=== PATIENT | male | born 1960 | race African-American/Black ===

== ENCOUNTER → 2018-08-19 | Outpatient (CLI) | payer OTHER ==
[2018-08-19 10:30] LABS: ABSOLUTE EOSINOPHILS # (AUTO) 0.5 10^3/uL (0.0-0.6); ABSOLUTE LYMPHOCYTES (AUTO) 1.3 10^3/uL (0.5-4.7); ABSOLUTE MONOCYTES (AUTO) 0.5 10^3/uL (0.1-1.4); ABSOLUTE NEUT (AUTO) 4.9 10^3/uL (1.7-8.2); BASOPHILS % (AUTO) 0.3 % (0-2); HEMATOCRIT 42.4 % (37.9-51.0); HEMOGLOBIN 14.6 g/dL (13.5-17.0); LYMPHOCYTES % (AUTO) 17.6 % (13-45); MEAN CORPUSCULAR HGB CONC 34.4 g/dL (32.0-36.0); MEAN CORPUSCULAR VOLUME 96 fl (80-97); MONOCYTES % (AUTO) 6.5 % (3-13); PLATELET COUNT 188 10^3/uL (150-450); RED BLOOD COUNT 4.42 10^6/uL (4.35-5.55); SEGMENTED NEUTROPHILS % (AUTO) 68.6 % (42-78); TOTAL CELLS COUNTED % (AUTO) 100 %; WHITE BLOOD COUNT 7.1 10^3/uL (4.0-10.5)
[2018-08-19 10:50] LABS: ALANINE AMINOTRANSFERASE 27 U/L (21-72); ALKALINE PHOSPHATASE 63 U/L (38-126); ANION GAP 10 (5-19); ASPARTATE AMINO TRANSFERASE 28 U/L (17-59); BILIRUBIN,DIRECT 0.3 mg/dL (0.0-0.4); BILIRUBIN,TOTAL 1.1 mg/dL (0.2-1.3); BLOOD UREA NITROGEN 14 mg/dL (7-20); CALCIUM 9.3 mg/dL (8.4-10.2); CARBON DIOXIDE 28 mmol/L (22-30); CHLORIDE 103 mmol/L (98-107); GLUCOSE 120 mg/dL (75-110); POTASSIUM 4.8 mmol/L (3.6-5.0); SODIUM 141.3 mmol/L (137-145); TOTAL PROTEIN 7.2 g/dL (6.3-8.2)
== END ==
LOC: OD 09:21
PROVIDERS: ATTEND Internal Medicine Geriatric Medicine
DX: R10.9 Unspecified abdominal pain (principal)
CPT/HCPCS: 36415; 80053; 85025

== ENCOUNTER → 2018-08-23 | Outpatient (CLI) | payer OTHER ==
--- NOTE | 2018-08-23 13:05 | RADIOLOGY REPORT (SQ) ---
EXAM DESCRIPTION: CT ABD/PELVIS WITH IV ORAL COMPLETED DATE/TIME: 08/23/2018 10:38 am REASON FOR STUDY: ABD PAIN (R10.9) R10.9 UNSPECIFIED ABDOMINAL PAIN COMPARISON: None. TECHNIQUE: CT scan of the abdomen and pelvis performed with intravenous and oral contrast using rodrigo alyssa scanning technique with dynamic intravenous contrast injection. Images reviewed with lung, soft t issue, and bone windows. Reconstructed coronal and sagittal MPR images reviewed. Delayed images for e valuation of the urinary system also acquired. All images stored on PACS. All CT scanners at this facility use dose modulation, iterative reconstruction, and/or weight based d osing when appropriate to reduce radiation dose to as low as reasonably achievable (ALARA). [facility]: Dose Right [facility]: CareDose [facility]: Dose Right [facility]: Teradose 4D [facility]: [employer] CONTRAST TYPE AND DOSE: contrast/concentration: Isovue 350.00 mg/ml; Total Contrast Delivered: 86.0 ml; Total Saline Delivered: 69.0 ml RENAL FUNCTION: GFR > 60. RADIATION DOSE: CT Rad equipment meets quality standard of care and radiation dose reduction techniq ues were employed. CTDIvol: 6.0 - 6.7 mGy. DLP: 690 mGy-cm.. LIMITATIONS: None. FINDINGS: LOWER CHEST: 4 mm right middle lobe pulmonary nodule. 5 mm right lower lobe pulmonary nod ule. LIVER: Normal size. No masses. No dilated ducts. SPLEEN: Normal size. No focal lesions. PANCREAS: No masses. No significant calcifications. No adjacent inflammation or peripancreatic fluid collections. Pancreatic duct not dilated. GALLBLADDER: No identified stones by CT criteria. No inflammatory changes to suggest cholecystitis. ADRENAL GLANDS: No significant masses or asymmetry. RIGHT KIDNEY AND URETER: No solid masses. No significant calcification. No hydronephrosis or hydroure ter. LEFT KIDNEY AND URETER: 5 cm lower pole/ parapelvic cyst. No obstruction or solid mass. AORTA AND VESSELS: No aneurysm. No dissection. Renal arteries, SMA, celiac without stenosis. RETROPERITONEUM: No retroperitoneal adenopathy, hemorrhage or masses. BOWEL AND PERITONEAL CAVITY: Diverticulosis throughout the distal colon. Sigmoid colon looks thick-w alled, but this may be due to underdistention with contrast. Contrast has not yet reached this porti on of the bowel. Other loops of bowel look normal. Mild-moderate stool. No mechanical bowel obstru ction. No ascites or abnormal gas. APPENDIX: Normal. PELVIS: Streak artifact from left hip replacement mildly obscures. No gross mass or fluid. No bladd er stones. ABDOMINAL WALL: No masses. No hernias. BONES: No significant or acute findings. OTHER: No other significant finding. IMPRESSION: 1. Wall thickening in the sigmoid colon. Regional diverticulosis. Active diverticuliti s is possible, however the findings may be largely artifact and related to underdistention. TECHNICAL DOCUMENTATION: JOB ID: [id number] Quality ID # [id number]: Final reports with documentation of one or more dose reduction techniques (e.g., Au tomated exposure control, adjustment of the mA and/or kV according to patient size, use of iterative reconstruction technique) 2010 [employer] All Rights Reserved Reading location - IP/workstation name: [email or web address]
== END ==
LOC: RAD 07:36
PROVIDERS: ATTEND Internal Medicine Geriatric Medicine
DX: R10.9 Unspecified abdominal pain (principal)
CPT/HCPCS: 74177

== ENCOUNTER → 2019-07-20 | Outpatient (CLI) | payer OTHER ==
[2019-07-20 12:08] LABS: ABSOLUTE EOSINOPHILS # (AUTO) 0.4 10^3/uL (0.0-0.6); ABSOLUTE LYMPHOCYTES (AUTO) 1.2 10^3/uL (0.5-4.7); ABSOLUTE MONOCYTES (AUTO) 0.6 10^3/uL (0.1-1.4); ABSOLUTE NEUT (AUTO) 6.9 10^3/uL (1.7-8.2); BASOPHILS % (AUTO) 0.4 % (0-2); EOSINOPHILS % (AUTO) 4.2 % (0-6); HEMOGLOBIN 14.6 g/dL (13.5-17.0); LYMPHOCYTES % (AUTO) 12.9 % (13-45); MEAN CORPUSCULAR HEMOGLOBIN 32.4 pg (27.0-33.4); MEAN CORPUSCULAR HGB CONC 33.9 g/dL (32.0-36.0); MEAN CORPUSCULAR VOLUME 96 fl (80-97); MONOCYTES % (AUTO) 6.6 % (3-13); PLATELET COUNT 182 10^3/uL (150-450); RED CELL DISTRIBUTION WIDTH 13.4 % (11.5-14.0); SEGMENTED NEUTROPHILS % (AUTO) 75.9 % (42-78); TOTAL CELLS COUNTED % (AUTO) 100 %; WHITE BLOOD COUNT 9.1 10^3/uL (4.0-10.5)
[2019-07-20 12:33] LABS: ALBUMIN 4.3 g/dL (3.5-5.0); ALKALINE PHOSPHATASE 82 U/L (38-126); ANION GAP 8 (5-19); ASPARTATE AMINO TRANSFERASE 25 U/L (17-59); BILIRUBIN,DIRECT 0.1 mg/dL (0.0-0.4); BILIRUBIN,TOTAL 0.8 mg/dL (0.2-1.3); BLOOD UREA NITROGEN 14 mg/dL (7-20); CALCIUM 9.7 mg/dL (8.4-10.2); CARBON DIOXIDE 29 mmol/L (22-30); CHLORIDE 104 mmol/L (98-107); GLUCOSE 97 mg/dL (75-110); POTASSIUM 4.3 mmol/L (3.6-5.0); TOTAL PROTEIN 7.8 g/dL (6.3-8.2)
--- NOTE | 2019-07-20 13:49 | RADIOLOGY REPORT (SQ) ---
EXAM DESCRIPTION: ABDOMEN 2 VIEWS COMPLETED DATE/TIME: 07/20/2019 1:08 pm REASON FOR STUDY: GENERALIZED ABDOMINAL PAIN R10.84 GENERALIZED ABDOMINAL PAIN R10.84 GENERALIZED ABDOMINAL PAIN R10.84 GENERALIZED ABDOMINAL PAIN COMPARISON: None. NUMBER OF VIEWS: Two views. TECHNIQUE: Supine and upright radiographic images of the abdomen acquired. LIMITATIONS: None. FINDINGS: FREE AIR: None. No abnormal gas collections. LUNG BASES: Clear. BOWEL GAS PATTERN: Nonobstructive pattern. No dilated loops or air fluid levels. Moderate stool thro ughout the colon CALCIFICATIONS: No suspicious calcifications. SOFT TISSUES: No gross mass or suggestion of organomegaly. HARDWARE: Left total hip replacement BONES: No acute fracture. No worrisome bone lesions. OTHER: No other significant finding. IMPRESSION: NO RADIOGRAPHIC EVIDENCE FOR ACUTE ABDOMINAL DISEASE. TECHNICAL DOCUMENTATION: JOB ID: [id number] [employer]- All Rights Reserved Reading location - IP/workstation name: [email or web address]
== END ==
LOC: OD 11:31
PROVIDERS: ATTEND Nurse Practitioner Acute Care
DX: R10.84 Generalized abdominal pain (principal)
CPT/HCPCS: 36415; 74019; 80053; 83690; 85025

== ENCOUNTER 2019-10-18 14:46 | Inpatient (IN) | payer OTHER ==
[2019-10-18] MEDS ORDERED: ACETAMINOPHEN 325 MG TABLET PO PRN (15:31)
[2019-10-18] MEDS ORDERED: ONDANSETRON HCL INJ/PF 4 MG/2 ML SDV IV PRN (15:31)
[2019-10-18] MEDS: NORMAL SALINE 1000 ML 1,000 ML IV PRN (15:58)
[2019-10-18 16:05] LABS: ABSOLUTE EOSINOPHILS # (AUTO) 0.3 10^3/uL (0.0-0.6); ABSOLUTE MONOCYTES (AUTO) 1.1 10^3/uL (0.1-1.4); ABSOLUTE NEUT (AUTO) 12.2 10^3/uL (1.7-8.2); BASOPHILS % (AUTO) 0.3 % (0-2); EOSINOPHILS % (AUTO) 1.9 % (0-6); HEMATOCRIT 43.4 % (37.9-51.0); HEMOGLOBIN 14.8 g/dL (13.5-17.0); LYMPHOCYTES % (AUTO) 6.9 % (13-45); MEAN CORPUSCULAR HEMOGLOBIN 32.2 pg (27.0-33.4); MEAN CORPUSCULAR HGB CONC 34.1 g/dL (32.0-36.0); MEAN CORPUSCULAR VOLUME 94 fl (80-97); MONOCYTES % (AUTO) 7.5 % (3-13); PLATELET COUNT 278 10^3/uL (150-450); RED CELL DISTRIBUTION WIDTH 13.3 % (11.5-14.0); SEGMENTED NEUTROPHILS % (AUTO) 83.4 % (42-78); TOTAL CELLS COUNTED % (AUTO) 100 %; WHITE BLOOD COUNT 14.6 10^3/uL (4.0-10.5)
[2019-10-18] MEDS ORDERED: INFLUENZA QUAD (6MOS+) 2019-20 VAC 0.5 ML SYR IM ONE (16:14)
[2019-10-18 16:31] LABS: ALBUMIN 4.1 g/dL (3.5-5.0); ALKALINE PHOSPHATASE 82 U/L (38-126); ANION GAP 15 (5-19); ASPARTATE AMINO TRANSFERASE 18 U/L (17-59); BILIRUBIN,DIRECT 0.1 mg/dL (0.0-0.4); BILIRUBIN,TOTAL 0.6 mg/dL (0.2-1.3); BLOOD UREA NITROGEN 13 mg/dL (7-20); CALCIUM 9.2 mg/dL (8.4-10.2); CARBON DIOXIDE 26 mmol/L (22-30); CHLORIDE 98 mmol/L (98-107); GLUCOSE 119 mg/dL (75-110); POTASSIUM 4.7 mmol/L (3.6-5.0); TOTAL PROTEIN 7.6 g/dL (6.3-8.2)
[2019-10-18] MEDS: METRONIDAZOLE 500 MG/NS RTU 500 MG/100 ML RTUPB IV SCH (17:01)
[2019-10-18] MEDS ORDERED: (PENDING PHARMACY ID) (Oxycodone Hcl/Acetaminophen [Percocet 10-325 Mg Tablet] 1 TAB) PO PRN (17:30)
[2019-10-18] MEDS ORDERED: (PENDING PHARMACY ID) (Sildenafil Citrate [Viagra] 100 MG) PO PRN (17:30)
[2019-10-18] MEDS: OXYCODONE HCL IR 5 MG TABLET PO PRN (18:28)
[2019-10-18] MEDS: OXYCODONE-ACETAMINOPHEN 5-325 MG TABLET PO PRN (18:28)
--- NOTE | 2019-10-18 19:17 | PDOC H&P ---
History of Present Illness Admission Date/PCP: 10/18/19 14:46 ALPHONSO INFANTE MD Patient complains of: Abdominal pain, Nausea, Vomiting History of Present Illness: JAYLIN ARANA is a 59 year old male patient known to my practice who presented to the office earlier today with complain of abdominal pain since 10/10/2019 and development of nausea with vomiting today. Patient localized pain mostly to LLQ region and described as colicky, worsening in intensity and graded 8/10. He reported chills and breaking out with sweats intermittently. He denied diarrhea or constipation. No dysuria or flank pain. His appetite and p.o intake declined due to associated listed symptoms. He denied any chest pain or difficulty with breathing. His morbidities are as listed below. Past Medical History Cardiac Medical History: Reports: Hypertension Pulmonary Medical History: Reports: None EENT Medical History: Reports: None Neurological Medical History: Reports: None Endocrine Medical History: Reports: None Renal/ Medical History: Reports: Other - BPH with LUTS Erectile Dysfunction Malignancy Medical History: Reports: None GI Medical History: Reports: Other - Diverticulosis Musculoskeltal Medical History: Reports: Arthritis - with chronic pain Skin Medical History: Reports: None Psychiatric Medical History: Reports: None Traumatic Medical History: Reports: None Hematology: Reports: None Infectious Medical History: Reports: None Past Surgical History Past Surgical History: Reports: Orthopedic Surgery - R ELBOW Social History Smoking Status: Former Smoker Family History Parental Family History Reviewed: Yes Children Family History Reviewed: Yes Sibling(s) Family History Reviewed.: Yes Medication/Allergy Home Medications: Aspirin [Ecotrin 81 mg EC Tablet] 81 mg PO DAILY 10/18/19 Duloxetine HCl [Cymbalta 30 mg Capsule.dr] 30 mg PO DAILY 10/18/19 Dutasteride/Tamsulosin HCl [Dutasteride-Tamsulosin 0.5-0.4] 1 cap PO DAILY 10/18/19 Fluticasone Propionate [Flonase Nasal [place] 50 Mcg/[place] 16 gm] 2 spray NASL DAILY 10/18/19 Meloxicam [Mobic] 15 mg PO DAILY 10/18/19 Multivitamin [Daily Multiple Vitamin] 1 tab PO DAILY 10/18/19 Oxycodone HCl/Acetaminophen [Percocet 10-325 mg Tablet] 1 tab PO Q6HP PRN 10/18/19 Sennosides/Docusate Sodium [Senna Plus 8.6-50 mg Tablet] 1 tab PO DAILY 10/18/19 Sildenafil Citrate [Viagra] 100 mg PO PRN PRN 10/18/19 Allergies/Adverse Reactions: No Known Allergies Allergy (Verified 01/21/12 15:11) Physical Exam Vital Signs: Temp Pulse Resp BP Pulse Ox 97.4 F 82 18 147/91 H 100 10/18/19 15:53 10/18/19 15:53 10/18/19 15:53 10/18/19 15:53 10/18/19 15:53 Intake & Output 10/17/19 10/18/19 10/19/19 06:59 06:59 06:59 Intake Total 302 Balance 302 Weight 79.7 kg General appearance: PRESENT: mild distress - due to abdominal pain Head exam: PRESENT: atraumatic, normocephalic Eye exam: PRESENT: conjunctiva pink, EOMI, PERRLA. ABSENT: scleral icterus Ear exam: PRESENT: normal external ear exam Mouth exam: PRESENT: moist Respiratory exam: PRESENT: clear to auscultation tesfaye Cardiovascular exam: PRESENT: RRR, +S1, +S2. ABSENT: diastolic murmur, rubs, systolic murmur Vascular exam: ABSENT: pallor GI/Abdominal exam: PRESENT: normal bowel sounds, soft, tenderness - LLQ. AB SENT: ascites, distended, guarding, hernia, organolmegaly, rebound, other Rectal exam: PRESENT: deferred Extremities exam: ABSENT: pedal edema Musculoskeletal exam: PRESENT: ambulatory Neurological exam: PRESENT: alert, awake, oriented to person, oriented to place, oriented to time, oriented to situation, CN II-XII grossly intact. ABSENT: motor sensory deficit Psychiatric exam: PRESENT: appropriate affect, normal mood. ABSENT: homicidal ideation, suicidal ideation Skin exam: PRESENT: dry, warm Results Laboratory Results: 10/18/19 15:38 10/18/19 15:38 10/18/19 10/18/19 15:38 15:38 WBC 14.6 H RBC 4.60 Hgb 14.8 Hct 43.4 MCV 94 MCH 32.2 MCHC 34.1 RDW 13.3 Plt Count 278 Seg Neutrophils % 83.4 H Sodium 139.0 Potassium 4.7 Chloride 98 Carbon Dioxide 26 Anion Gap 15 BUN 13 Creatinine 1.10 Est GFR ( Amer) > 60 Glucose 119 H Calcium 9.2 Total Bilirubin 0.6 AST 18 Alkaline Phosphatase 82 Total Protein 7.6 Albumin 4.1 Assessment & Plan - Diagnosis (1) Diverticulitis of colon Is this a current diagnosis for this admission?: Yes Plan: See admitting attending physician orders for details about care plan. (2) HTN (hypertension) Qualifiers: Hypertension type: essential hypertension Qualified Code(s): I10 - Essential (primary) hypertension Is this a current diagnosis for this admission?: Yes Plan: See admitting attending physician orders for details about care plan. (3) BPH w urinary obs/LUTS Is this a current diagnosis for this admission?: Yes Plan: See admitting attending physician orders for details about care plan. (4) GERD (gastroesophageal reflux disease) Qualifiers: Esophagitis presence: esophagitis presence not specified Qualified Code(s): K21.9 - Gastro-esophageal reflux disease without esophagitis Is this a current diagnosis for this admission?: Yes Plan: See admitting attending physician orders for details about care plan. (5) Osteoarthritis involving multiple joints on both sides of body Is this a current diagnosis for this admission?: Yes Plan: See admitting attending physician orders for details about care plan. (6) Chronic pain syndrome Is this a current diagnosis for this admission?: Yes Plan: See admitting attending physician orders for details about care plan. (7) Erectile dysfunction Qualifiers: Erectile dysfunction type: unspecified Qualified Code(s): N52.9 - Male erectile dysfunction, unspecified Is this a current diagnosis for this admission?: Yes Plan: See admitting attending physician orders for details about care plan. - Time Time Spent: 50 to 70 Minutes Medications reviewed and adjusted accordingly: Yes Anticipated discharge: Home Within: Other - Inpatient Certification Based on my medical assessment, after consideration of the patient's comorbidities, presenting symptoms, or acuity I expect that the services needed warrant INPATIENT care.: Yes I certify that my determination is in accordance with my understanding of Medicare's requirements for reasonable and necessary INPATIENT services [42 CFR 412.3e].: Yes Medical Necessity: Significant Comorbidiites Make Outpatient Treatment Too Risky, Need Close Monitoring Due to Risk of Patient Decompensation, Need For IV Fluids, Need For Continuous Telemetry Monitoring, Need for IV Antibiotics, Risk of Complication if Not Cared For in Hospital, Risk of Diagnosis Which Will Require Inpatient Eval/Care/Monitoring Post Hospital Care: D/C Rn Medical Inpatient Services Documentation - Plan Summary Plan Summary: See admitting attending physician orders for details about care plan.
[2019-10-18] MEDS: CIPROFLOXACIN 400 MG/D5W RTU 400 MG/200 ML RTUPB IV SCH (22:27)
[2019-10-19] MEDS: OXYCODONE HCL IR 5 MG TABLET PO PRN ×3 (00:58→22:12)
[2019-10-19] MEDS: OXYCODONE-ACETAMINOPHEN 5-325 MG TABLET PO PRN ×3 (00:59→22:12)
[2019-10-19] MEDS: METRONIDAZOLE 500 MG/NS RTU 500 MG/100 ML RTUPB IV SCH ×3 (03:09→17:53)
[2019-10-19] MEDS: NORMAL SALINE 1000 ML 1,000 ML IV PRN ×2 (03:14→16:49)
[2019-10-19 06:27] LABS: ABSOLUTE EOSINOPHILS # (AUTO) 0.6 10^3/uL (0.0-0.6); ABSOLUTE LYMPHOCYTES (AUTO) 1.2 10^3/uL (0.5-4.7); ABSOLUTE MONOCYTES (AUTO) 1.4 10^3/uL (0.1-1.4); ABSOLUTE NEUT (AUTO) 10.2 10^3/uL (1.7-8.2); BASOPHILS % (AUTO) 0.2 % (0-2); EOSINOPHILS % (AUTO) 4.6 % (0-6); HEMATOCRIT 38.5 % (37.9-51.0); HEMOGLOBIN 13.3 g/dL (13.5-17.0); LYMPHOCYTES % (AUTO) 8.9 % (13-45); MEAN CORPUSCULAR HEMOGLOBIN 32.5 pg (27.0-33.4); MEAN CORPUSCULAR HGB CONC 34.6 g/dL (32.0-36.0); MEAN CORPUSCULAR VOLUME 94 fl (80-97); MONOCYTES % (AUTO) 10.5 % (3-13); PLATELET COUNT 261 10^3/uL (150-450); RED BLOOD COUNT 4.09 10^6/uL (4.35-5.55); RED CELL DISTRIBUTION WIDTH 13.3 % (11.5-14.0); SEGMENTED NEUTROPHILS % (AUTO) 75.8 % (42-78); TOTAL CELLS COUNTED % (AUTO) 100 %; WHITE BLOOD COUNT 13.4 10^3/uL (4.0-10.5)
[2019-10-19 06:46] LABS: ANION GAP 11 (5-19); BLOOD UREA NITROGEN 11 mg/dL (7-20); CALCIUM 9.2 mg/dL (8.4-10.2); CARBON DIOXIDE 30 mmol/L (22-30); CHLORIDE 97 mmol/L (98-107); GLUCOSE 113 mg/dL (75-110); POTASSIUM 4.6 mmol/L (3.6-5.0)
--- NOTE | 2019-10-19 09:24 | RADIOLOGY REPORT (SQ) ---
EXAM DESCRIPTION: CT ABD/PELVIS WITH IV ORAL COMPLETED DATE/TIME: 10/18/2019 5:22 pm REASON FOR STUDY: abdominal pain. Left lower quadrant abdominal pain. COMPARISON: CT abdomen and pelvis 08/23/2018 TECHNIQUE: CT scan of the abdomen and pelvis performed using helical scanning technique with dynamic intravenous contrast injection. No oral contrast. Images reviewed with lung, soft tissue, and bone windows. Reconstructed coronal and sagittal MPR images reviewed. Delayed images for evaluation of the urinary system also acquired. All images stored on PACS. All CT scanners at this facility use dose modulation, iterative reconstruction, and/or weight based d osing when appropriate to reduce radiation dose to as low as reasonably achievable (ALARA). [facility]: Dose Right [facility]: CareDose [facility]: Dose Right [facility]: Teradose 4D [facility]: [employer] CONTRAST TYPE AND DOSE: contrast/concentration: Isovue 350.00 mg/ml; Total Contrast Delivered: 84.0 ml; Total Saline Delivered: 50.0 ml RENAL FUNCTION: GFR > 60. RADIATION DOSE: CT Rad equipment meets quality standard of care and radiation dose reduction techniq ues were employed. CTDIvol: 7.8 - 10.9 mGy. DLP: 1033 mGy-cm.. LIMITATIONS: None. FINDINGS: LOWER CHEST: No significant findings. No nodules or infiltrates. LIVER: Normal size. No masses. No dilated ducts. SPLEEN: Normal size. No focal lesions. PANCREAS: No masses. No significant calcifications. No adjacent inflammation or peripancreatic fluid collections. Pancreatic duct not dilated. GALLBLADDER: No identified stones by CT criteria. No inflammatory changes to suggest cholecystitis. ADRENAL GLANDS: No significant masses or asymmetry. RIGHT KIDNEY AND URETER: Technically too small to characterize exophytic renal cortical lesion at the midpole right kidney anteriorly probably represents a small renal cortical cyst although is technica lly indeterminate. This is unchanged from prior exam. No definite solid mass. No significant calc ifications. No hydronephrosis or hydroureter. LEFT KIDNEY AND URETER: Left parapelvic cyst is unchanged. No solid mass. No significant calcifica tions. No hydronephrosis or hydroureter. AORTA AND VESSELS: No aneurysm. No dissection. Renal arteries, SMA, celiac without stenosis. RETROPERITONEUM: No retroperitoneal adenopathy, hemorrhage or masses. BOWEL AND PERITONEAL CAVITY: There is a 7.4 x 5.2 x 3.9 cm abscess in the left mid abdomen with surro unding inflammatory change and a air-fluid level. This is adjacent to the sigmoid colon and likely r epresent perforated diverticulitis. There is mass effect on adjacent small bowel. Mildly dilated lo ops of small bowel in the upper abdomen with transition near the abscess likely represents ileus ente shiloh contrast has progressed into the distal small bowel and colon. Background colonic diverticulosis in the descending colon and sigmoid colon with surrounding inflammatory change involving several div erticulitis at the distal descending colon adjacent to the abscess. No pneumoperitoneum. Trace asci mynor in the left pericolic gutter. . APPENDIX: Normal. PELVIS: No mass. No free fluid. Normal bladder. ABDOMINAL WALL: No masses. No hernias. BONES: No significant or acute findings. OTHER: No other significant finding. IMPRESSION: 1. Complicated sigmoid diverticulitis. Moderate-sized peritoneal abscess in the left lower quadrant abdomen with surrounding inflammatory change and mass effect on adjacent bowel. 2. Small bowel ileus related to inflammatory change adjacent to the abscess. No bowel obstruction. 3. Stable too small to characterize right renal cortical lesion likely a renal cortical cyst. Left p arapelvic cyst is unchanged. COMMENT: Findings discussed with the RN taking care of the patient on 10/19/2019 at 0917 hours. TECHNICAL DOCUMENTATION: JOB ID: [id number] Quality ID # [id number]: Final reports with documentation of one or more dose reduction techniques (e.g., Au tomated exposure control, adjustment of the mA and/or kV according to patient size, use of iterative reconstruction technique) 2010 [employer]- All Rights Reserved Reading location - IP/workstation name: [email or web address]
[2019-10-19] MEDS: PANTOPRAZOLE SODIUM 40 MG TABLET.DR PO SCH (09:32)
[2019-10-19] MEDS: SENNOSIDES/DOCUSATE 8.6-50 MG 1 EACH TABLET PO SCH (09:33)
[2019-10-19] MEDS: MELOXICAM 15 MG TABLET PO SCH (09:33)
[2019-10-19] MEDS: ASPIRIN 81 MG TABLET, ENT COATED PO SCH (09:33)
[2019-10-19] MEDS: MULTIVITAMIN TABLET PO SCH (09:33)
[2019-10-19] MEDS: DULOXETINE HCL 30 MG CAPSULE.DR PO SCH (09:33)
[2019-10-19] MEDS: TAMSULOSIN HCL 0.4 MG CAP.SR.24H PO SCH (09:33)
[2019-10-19] MEDS: DUTASTERIDE 0.5 MG CAPSULE PO SCH (09:34)
[2019-10-19] MEDS: ENOXAPARIN SODIUM INJ 40 MG/0.4 ML DISP.SYRIN SUBCUT SCH (09:36)
[2019-10-19] MEDS: FLUTICASONE NASAL SPRAY 50 MCG/SPRY 120 SPRAY/16 GM NASL SCH (09:36)
[2019-10-19] MEDS: CIPROFLOXACIN 400 MG/D5W RTU 400 MG/200 ML RTUPB IV SCH ×2 (09:37→22:11)
[2019-10-19] MEDS ORDERED: DUTASTERIDE PO SCH (10:00)
[2019-10-19] MEDS ORDERED: TAMSULOSIN HCL PO SCH (10:00)
[2019-10-19] MEDS ORDERED: [UNRECOGNIZED DRUG - OTHER] PO SCH (10:00)
--- NOTE | 2019-10-19 12:05 | PDOC CONSULTATION ---
Consultation Consult Date: 10/19/19 Attending physician:: ALPHONSO INFANTE Provider Consulted: SHALONDA FATIMA Consult reason:: Abdominal pain History of Present Illness Admission Date/PCP: 10/18/19 14:46 LILA SMITH NP History of Present Illness: JAYLIN ARANA is a 59 year old male Presents emergency room via ground rescue complaining of a several day history of abdominal pain, anorexia, back pain, and nausea. On further questioning patient states he has had several weeks of lower back pain and not quite right. Patient has had [address] Singh, reportedly unremarkable. He was evaluated by CT scan of the abdomen and pelvis and was found to have sigmoid colon diverticulitis with a large 7.4 cm peritoneal abscess. He was admitted to the internal medicine service for management. Surgery was consulted. Patient denies previous history diverticular disease. Past Medical History Cardiac Medical History: Reports: Hypertension Pulmonary Medical History: Reports: None EENT Medical History: Reports: None Neurological Medical History: Reports: None Endocrine Medical History: Reports: None Renal/ Medical History: Reports: Other - BPH with LUTS Erectile Dysfunction Malignancy Medical History: Reports: None GI Medical History: Reports: Other - Diverticulosis Musculoskeltal Medical History: Reports: Arthritis - with chronic pain Skin Medical History: Reports: None Psychiatric Medical History: Reports: None Traumatic Medical History: Reports: None Hematology: Reports: None Infectious Medical History: Reports: None Past Surgical History Past Surgical History: Multiple orthopedic procedures; left total hip replacement Past Surgical History: Reports: Orthopedic Surgery - R ELBOW Social History Information Source: Patient Smoking Status: Former Smoker Electronic Cigarette use?: No Frequency of Alcohol Use: None Hx Recreational Drug Use: No Hx Prescription Drug Abuse: No Family History Family History: None Parental Family History Reviewed: No Children Family History Reviewed: No Sibling(s) Family History Reviewed.: No Medication/Allergy Home Medications: Aspirin [Ecotrin 81 mg EC Tablet] 81 mg PO DAILY 10/18/19 Duloxetine HCl [Cymbalta 30 mg Capsule.dr] 30 mg PO DAILY 10/18/19 Dutasteride/Tamsulosin HCl [Dutasteride-Tamsulosin 0.5-0.4] 1 cap PO DAILY 10/18/19 Fluticasone Propionate [Flonase Nasal [place] 50 Mcg/[place] 16 gm] 2 spray NASL DAILY 10/18/19 Meloxicam [Mobic] 15 mg PO DAILY 10/18/19 Multivitamin [Daily Multiple Vitamin] 1 tab PO DAILY 10/18/19 Oxycodone HCl/Acetaminophen [Percocet 10-325 mg Tablet] 1 tab PO Q6HP PRN 10/18/19 Sennosides/Docusate Sodium [Senna Plus 8.6-50 mg Tablet] 1 tab PO DAILY 10/18/19 Sildenafil Citrate [Viagra] 100 mg PO PRN PRN 10/18/19 Allergies/Adverse Reactions: No Known Allergies Allergy (Verified 01/21/12 15:11) Review of Systems Constitutional: ABSENT: chills, fever(s), headache(s), weight gain, weight loss Eyes: ABSENT: visual disturbances Ears: ABSENT: hearing changes Cardiovascular: ABSENT: chest pain, dyspnea on exertion, edema, orthropnea, palpitations Respiratory: ABSENT: cough, hemoptysis Gastrointestinal: PRESENT: as per HPI, other Genitourinary: ABSENT: dysuria, hematuria Musculoskeletal: PRESENT: back pain, other - Patient with a chronic musculoskel etal pain, takes narcotics Psychiatric: ABSENT: anxiety, depression, homidical ideation, suicidal ideation Endocrine: ABSENT: cold intolerance, heat intolerance, polydipsia, polyuria Physical Exam Vital Signs: Temp Pulse Resp BP Pulse Ox 98.6 F 59 L 12 142/71 H 98 10/19/19 10:47 10/19/19 10:47 10/19/19 10:47 10/19/19 10:47 10/19/19 10:47 Intake & Output 10/18/19 10/19/19 10/20/19 06:59 06:59 06:59 Intake Total 1924 300 Balance 1924 300 Weight 81.5 kg General appearance: PRESENT: no acute distress Head exam: PRESENT: normocephalic Eye exam: PRESENT: EOMI Mouth exam: PRESENT: dry mucosa Neck exam: PRESENT: full ROM Respiratory exam: PRESENT: clear to auscultation tesfaye Cardiovascular exam: PRESENT: other - Patient is bradycardic Pulses: PRESENT: normal carotid pulses, normal radial pulses, normal femoral pulses GI/Abdominal exam: PRESENT: other - Abdomen is soft not distended; there is tenderness in the left deep pelvis with mild guarding to deep palpation Rectal exam: PRESENT: deferred Extremities exam: PRESENT: full ROM Musculoskeletal exam: PRESENT: full ROM Neurological exam: PRESENT: oriented to person, oriented to place, oriented to time, oriented to situation Psychiatric exam: PRESENT: appropriate affect Results Laboratory Results: 10/19/19 05:36 10/19/19 05:36 10/18/19 10/18/19 10/19/19 15:38 15:38 05:36 WBC 14.6 H 13.4 H RBC 4.60 4.09 L Hgb 14.8 13.3 L Hct 43.4 38.5 MCV 94 94 MCH 32.2 32.5 MCHC 34.1 34.6 RDW 13.3 13.3 Plt Count 278 261 Seg Neutrophils % 83.4 H 75.8 Sodium 139.0 Potassium 4.7 Chloride 98 Carbon Dioxide 26 Anion Gap 15 BUN 13 Creatinine 1.10 Est GFR ( Amer) > 60 Glucose 119 H Calcium 9.2 Total Bilirubin 0.6 AST 18 Alkaline Phosphatase 82 Total Protein 7.6 Albumin 4.1 10/19/19 05:36 WBC RBC Hgb Hct MCV MCH MCHC RDW Plt Count Seg Neutrophils % Sodium 137.6 Potassium 4.6 Chloride 97 L Carbon Dioxide 30 Anion Gap 11 BUN 11 Creatinine 1.11 Est GFR ( Amer) > 60 Glucose 113 H Calcium 9.2 Total Bilirubin AST Alkaline Phosphatase Total Protein Albumin Impressions: Abdomen/Pelvis CT 10/18/19 00:00 IMPRESSION: 1. Complicated sigmoid diverticulitis. Moderate-sized peritoneal abscess in the left lower quadrant abdomen with surrounding inflammatory change and mass effect on adjacent bowel. 2. Small bowel ileus related to inflammatory change adjacent to the abscess. No bowel obstruction. 3. Stable too small to characterize right renal cortical lesion likely a renal cortical cyst. Left parapelvic cyst is unchanged. Assessment & Plan - Diagnosis (1) Diverticulitis of large intestine with complication Is this a current diagnosis for this admission?: Yes Plan: Impression: First episode of acute diverticulitis, complicated, with pericolonic abscess, large, Hinchey classification 1; abscess not amenable to percutaneous drainage. Patient without peritonitis or sepsis at this moment. Discussion: 1. I explained to patient the pathoanatomy of complicated diverticular disease, in particular the management options involved with intraperitoneal abscess. Unfortunately this abscess is not amenable to a percutaneous drainage due to its location between loops of small bowel and colon. This was reviewed with Dr. Saldana the radiologist. 2. Currently the patient does not need exploratory surgery. However he understands with nonoperative management, including IV antibiotics and bowel rest, he may deteriorate, and require emergent surgery, specifically sigmoid colectomy, abscess evacuation, and ostomy. He understands that we would prefer to bridge him over nonoperatively to an outpatient setting where he could have his colon reevaluated, then set up for interval resection, and primary anas tomosis. 3. We will follow patient closely with you. (2) BPH w urinary obs/LUTS Is this a current diagnosis for this admission?: Yes (3) Chronic pain syndrome Is this a current diagnosis for this admission?: Yes (4) Erectile dysfunction Qualifiers: Erectile dysfunction type: unspecified Qualified Code(s): N52.9 - Male erectile dysfunction, unspecified Is this a current diagnosis for this admission?: Yes - Time Time Spent: 30 to 50 Minutes Smoking Cessation Education: 3 to 10 minutes Medications reviewed and adjusted accordingly: Yes Anticipated discharge: Home - Inpatient Certification Based on my medical assessment, after consideration of the patient's comorbidi ties, presenting symptoms, or acuity I expect that the services needed warrant INPATIENT care.: Yes I certify that my determination is in accordance with my understanding of [employer] requirements for reasonable and necessary INPATIENT services [42 CFR 412.3e].: Yes Medical Necessity: Need For IV Fluids, Need for Pain Control, Need for IV Antibiotics, Need for Surgery
--- NOTE | 2019-10-19 19:44 | PDOC PROGRESS REPORT ---
Subjective Progress Note for:: 10/19/19 Subjective:: Patient reported some improvement in his nausea and vomiting. His abdominal pain has significantly improved and toleration clear liquid oral feeding. No fever or chills. No chest pain or difficulty with breathing. Reason For Visit: ABDOMINAL PAIN, N/V,DIVERTICULITIS Physical Exam Vital Signs: Temp Pulse Resp BP Pulse Ox 98.6 F 48 L 12 142/71 H 98 10/19/19 10:47 10/19/19 14:00 10/19/19 10:47 10/19/19 10:47 10/19/19 10:47 Intake & Output 10/18/19 10/19/19 10/20/19 06:59 06:59 06:59 Intake Total 1923 1324 Balance 1923 1324 Weight 81.5 kg General appearance: PRESENT: mild distress - from improved abdominal pain. Head exam: PRESENT: atraumatic, normocephalic Eye exam: PRESENT: conjunctiva pink. ABSENT: scleral icterus Ear exam: PRESENT: TM's normal bilaterally Mouth exam: PRESENT: moist Respiratory exam: PRESENT: clear to auscultation tesfaye Cardiovascular exam: PRESENT: RRR, +S1, +S2. ABSENT: diastolic murmur, rubs, systolic murmur Vascular exam: ABSENT: pallor GI/Abdominal exam: PRESENT: normal bowel sounds, soft, tenderness - Left lower quadrant region. ABSENT: distended, guarding, mass, organolmegaly, rebound Extremities exam: ABSENT: pedal edema Neurological exam: PRESENT: alert, awake, oriented to person, oriented to place, oriented to time, oriented to situation, CN II-XII grossly intact. ABSENT: motor sensory deficit Psychiatric exam: PRESENT: appropriate affect, normal mood. ABSENT: homicidal ideation, suicidal ideation Skin exam: PRESENT: dry, warm Results Laboratory Results: 10/19/19 05:36 10/19/19 05:36 10/18/19 10/18/19 10/19/19 15:38 15:38 05:36 WBC 14.6 H 13.4 H RBC 4.60 4.09 L Hgb 14.8 13.3 L Hct 43.4 38.5 MCV 94 94 MCH 32.2 32.5 MCHC 34.1 34.6 RDW 13.3 13.3 Plt Count 278 261 Seg Neutrophils % 83.4 H 75.8 Sodium 139.0 Potassium 4.7 Chloride 98 Carbon Dioxide 26 Anion Gap 15 BUN 13 Creatinine 1.10 Est GFR ( Amer) > 60 Glucose 119 H Calcium 9.2 Total Bilirubin 0.6 AST 18 Alkaline Phosphatase 82 Total Protein 7.6 Albumin 4.1 10/19/19 05:36 WBC RBC Hgb Hct MCV MCH MCHC RDW Plt Count Seg Neutrophils % Sodium 137.6 Potassium 4.6 Chloride 97 L Carbon Dioxide 30 Anion Gap 11 BUN 11 Creatinine 1.11 Est GFR ( Amer) > 60 Glucose 113 H Calcium 9.2 Total Bilirubin AST Alkaline Phosphatase Total Protein Albumin Impressions: Abdomen/Pelvis CT 10/18/19 00:00 IMPRESSION: 1. Complicated sigmoid diverticulitis. Moderate-sized peritoneal abscess in the left lower quadrant abdomen with surrounding inflammatory change and mass effect on adjacent bowel. 2. Small bowel ileus related to inflammatory change adjacent to the abscess. No bowel obstruction. 3. Stable too small to characterize right renal cortical lesion likely a renal cortical cyst. Left parapelvic cyst is unchanged. Assessment & Plan - Diagnosis (1) Diverticulitis of colon Is this a current diagnosis for this admission?: Yes (2) HTN (hypertension) Qualifiers: Hypertension type: essential hypertension Qualified Code(s): I10 - Essential (primary) hypertension Is this a current diagnosis for this admission?: Yes (3) BPH w urinary obs/LUTS Is this a current diagnosis for this admission?: Yes (4) GERD (gastroesophageal reflux disease) Qualifiers: Esophagitis presence: esophagitis presence not specified Qualified Code(s): K21.9 - Gastro-esophageal reflux disease without esophagitis Is this a current diagnosis for this admission?: Yes (5) Osteoarthritis involving multiple joints on both sides of body Is this a current diagnosis for this admission?: Yes (6) Chronic pain syndrome Is this a current diagnosis for this admission?: Yes (7) Erectile dysfunction Qualifiers: Erectile dysfunction type: unspecified Qualified Code(s): N52.9 - Male erectile dysfunction, unspecified Is this a current diagnosis for this admission?: Yes - Time Time Spent with patient: 25-34 minutes Level of Care: TELE Medications reviewed and adjusted accordingly: Yes Anticipated discharge: Home - Inpatient Certification Based on my medical assessment, after consideration of the patient's comorbidities, presenting symptoms, or acuity I expect that the services needed warrant INPATIENT care.: Yes I certify that my determination is in accordance with my understanding of Medicare's requirements for reasonable and necessary INPATIENT services [42 CFR 412.3e].: Yes Medical Necessity: Significant Comorbidiites Make Outpatient Treatment Too Risky, Need Close Monitoring Due to Risk of Patient Decompensation, Need For IV Fluids, Need For Continuous Telemetry Monitoring, Need for IV Antibiotics, Risk of Complication if Not Cared For in Hospital, Risk of Diagnosis Which Will R equire Inpatient Eval/Care/Monitoring Post Hospital Care: D/C Clinical Esthetician Documentation - Plan Summary Plan Summary: Continue IV Ciprofloxacin and Metronidazole coverage. Follow up on blood culture findings. Surgical input appreciated. My concern revolve around the issue delay in surgical intervention in view of the reported size of the retroperitoneal abscess collection. I will have further discussion with the surgical team. Overall prognosis remain guarded.
[2019-10-19 21:00] LABS: ABSOLUTE BASOPHILS # (AUTO) 0.1 10^3/uL (0.0-0.2); ABSOLUTE EOSINOPHILS # (AUTO) 0.7 10^3/uL (0.0-0.6); ABSOLUTE LYMPHOCYTES (AUTO) 1.2 10^3/uL (0.5-4.7); ABSOLUTE MONOCYTES (AUTO) 1.2 10^3/uL (0.1-1.4); ABSOLUTE NEUT (AUTO) 6.9 10^3/uL (1.7-8.2); BASOPHILS % (AUTO) 0.5 % (0-2); EOSINOPHILS % (AUTO) 6.7 % (0-6); HEMATOCRIT 37.8 % (37.9-51.0); HEMOGLOBIN 13.2 g/dL (13.5-17.0); LYMPHOCYTES % (AUTO) 12.3 % (13-45); MEAN CORPUSCULAR HEMOGLOBIN 32.9 pg (27.0-33.4); MEAN CORPUSCULAR HGB CONC 34.9 g/dL (32.0-36.0); MEAN CORPUSCULAR VOLUME 94 fl (80-97); MONOCYTES % (AUTO) 12.1 % (3-13); PLATELET COUNT 249 10^3/uL (150-450); RED BLOOD COUNT 4.01 10^6/uL (4.35-5.55); RED CELL DISTRIBUTION WIDTH 13.1 % (11.5-14.0); SEGMENTED NEUTROPHILS % (AUTO) 68.4 % (42-78); TOTAL CELLS COUNTED % (AUTO) 100 %; WHITE BLOOD COUNT 10.1 10^3/uL (4.0-10.5)
[2019-10-20] MEDS: METRONIDAZOLE 500 MG/NS RTU 500 MG/100 ML RTUPB IV SCH ×3 (03:29→17:59)
[2019-10-20] MEDS: CIPROFLOXACIN 400 MG/D5W RTU 400 MG/200 ML RTUPB IV SCH ×2 (09:20→21:50)
[2019-10-20] MEDS: ENOXAPARIN SODIUM INJ 40 MG/0.4 ML DISP.SYRIN SUBCUT SCH (09:25)
[2019-10-20] MEDS: MELOXICAM 15 MG TABLET PO SCH (09:26)
[2019-10-20] MEDS: SENNOSIDES/DOCUSATE 8.6-50 MG 1 EACH TABLET PO SCH (09:26)
[2019-10-20] MEDS: DUTASTERIDE 0.5 MG CAPSULE PO SCH (09:26)
[2019-10-20] MEDS: MULTIVITAMIN TABLET PO SCH (09:26)
[2019-10-20] MEDS: DULOXETINE HCL 30 MG CAPSULE.DR PO SCH (09:26)
[2019-10-20] MEDS: ASPIRIN 81 MG TABLET, ENT COATED PO SCH (09:26)
[2019-10-20] MEDS: PANTOPRAZOLE SODIUM 40 MG TABLET.DR PO SCH (09:26)
[2019-10-20] MEDS: TAMSULOSIN HCL 0.4 MG CAP.SR.24H PO SCH (09:27)
[2019-10-20] MEDS: FLUTICASONE NASAL SPRAY 50 MCG/SPRY 120 SPRAY/16 GM NASL SCH (09:27)
[2019-10-20] MEDS: NORMAL SALINE 1000 ML 1,000 ML IV PRN (11:16)
--- NOTE | 2019-10-20 17:58 | PDOC PROGRESS REPORT ---
Subjective Progress Note for:: 10/20/19 Subjective:: He has diverticulitis complicated with peritoneal abscess on IV antibiotic, reports no new complaints Reason For Visit: ABDOMINAL PAIN, N/V,DIVERTICULITIS Physical Exam Vital Signs: Temp Pulse Resp BP Pulse Ox 98.4 F 57 L 16 166/95 H 98 10/20/19 15:28 10/20/19 15:28 10/20/19 15:28 10/20/19 15:28 10/20/19 15:28 Intake & Output 10/19/19 10/20/19 10/21/19 06:59 06:59 06:59 Intake Total 1924 4158 640 Balance 1924 4158 640 Weight 81.5 kg 82.1 kg General appearance: PRESENT: no acute distress Eye exam: PRESENT: PERRLA Respiratory exam: PRESENT: clear to auscultation tesfaye Cardiovascular exam: PRESENT: +S1, +S2 GI/Abdominal exam: PRESENT: soft, tenderness Results Laboratory Results: 10/19/19 20:17 10/19/19 05:36 10/19/19 20:17 WBC 10.1 RBC 4.01 L Hgb 13.2 L Hct 37.8 L MCV 94 MCH 32.9 MCHC 34.9 RDW 13.1 Plt Count 249 Seg Neutrophils % 68.4 Impressions: Abdomen/Pelvis CT 10/18/19 00:00 IMPRESSION: 1. Complicated sigmoid diverticulitis. Moderate-sized peritoneal abscess in the left lower quadrant abdomen with surrounding inflammatory change and mass effect on adjacent bowel. 2. Small bowel ileus related to inflammatory change adjacent to the abscess. No bowel obstruction. 3. Stable too small to characterize right renal cortical lesion likely a renal cortical cyst. Left parapelvic cyst is unchanged. Assessment & Plan - Diagnosis (1) Abscess of sigmoid colon due to diverticulitis Is this a current diagnosis for this admission?: Yes Plan: Continue IV antibiotic, surgery following - Time Time Spent with patient: 25-34 minutes
[2019-10-20 20:32] LABS: ABSOLUTE EOSINOPHILS # (AUTO) 0.4 10^3/uL (0.0-0.6); ABSOLUTE LYMPHOCYTES (AUTO) 1.4 10^3/uL (0.5-4.7); ABSOLUTE MONOCYTES (AUTO) 1.1 10^3/uL (0.1-1.4); BASOPHILS % (AUTO) 0.4 % (0-2); EOSINOPHILS % (AUTO) 4.3 % (0-6); HEMATOCRIT 37.7 % (37.9-51.0); LYMPHOCYTES % (AUTO) 15.8 % (13-45); MEAN CORPUSCULAR HEMOGLOBIN 32.7 pg (27.0-33.4); MEAN CORPUSCULAR HGB CONC 34.6 g/dL (32.0-36.0); MEAN CORPUSCULAR VOLUME 95 fl (80-97); PLATELET COUNT 296 10^3/uL (150-450); RED BLOOD COUNT 3.99 10^6/uL (4.35-5.55); RED CELL DISTRIBUTION WIDTH 13.4 % (11.5-14.0); SEGMENTED NEUTROPHILS % (AUTO) 67.5 % (42-78); TOTAL CELLS COUNTED % (AUTO) 100 %; WHITE BLOOD COUNT 8.9 10^3/uL (4.0-10.5)
--- NOTE | 2019-10-20 21:03 | PDOC PROGRESS REPORT ---
Subjective Progress Note for:: 10/20/19 Subjective:: This is a 59-year-old male with a history of complicated diverticulitis. The patient was found to have a large diverticular abscess, not amenable to percutaneous drainage. The patient reports feeling better today. His abdominal pain is essentially gone. He denies nausea or vomiting. He reports having a bowel movement earlier today. The patient is hungry and would like to begin eating. He denies chest pain, shortness of breath, fevers, chills, nausea, vomiting, headache, dizziness, orthostasis, malaise, or fatigue. Reason For Visit: ABDOMINAL PAIN, N/V,DIVERTICULITIS Physical Exam Vital Signs: Temp Pulse Resp BP Pulse Ox 98.4 F 57 L 16 166/95 H 98 10/20/19 15:28 10/20/19 19:00 10/20/19 15:28 10/20/19 15:28 10/20/19 15:28 Intake & Output 10/19/19 10/20/19 10/21/19 06:59 06:59 06:59 Intake Total 1924 4158 1240 Balance 1924 4158 1240 Weight 81.5 kg 82.1 kg General appearance: PRESENT: no acute distress, cooperative Head exam: PRESENT: atraumatic, normocephalic Eye exam: PRESENT: EOMI, PERRLA. ABSENT: scleral icterus Mouth exam: PRESENT: moist, neck supple Neck exam: ABSENT: meningismus, tenderness, thyromegaly, tracheal deviation Respiratory exam: PRESENT: unlabored. ABSENT: chest wall tenderness, tachypnea, wheezes Cardiovascular exam: ABSENT: tachycardia Vascular exam: PRESENT: normal capillary refill GI/Abdominal exam: PRESENT: distended - Mild, soft, tenderness - Minimal left lower quadrant. ABSENT: rebound, rigid Rectal exam: PRESENT: deferred Extremities exam: ABSENT: clubbing Neurological exam: PRESENT: alert, awake, oriented to person, oriented to place, oriented to time, oriented to situation, CN II-XII grossly intact. ABSENT: motor sensory deficit Psychiatric exam: ABSENT: agitated, anxious Focused psych exam: ABSENT: delusional Skin exam: ABSENT: cyanosis, erythema, jaundice Results Laboratory Results: 10/20/19 20:25 10/19/19 05:36 10/19/19 10/20/19 20:17 20:25 WBC 10.1 8.9 RBC 4.01 L 3.99 L Hgb 13.2 L 13.0 L Hct 37.8 L 37.7 L MCV 94 95 MCH 32.9 32.7 MCHC 34.9 34.6 RDW 13.1 13.4 Plt Count 249 296 Seg Neutrophils % 68.4 67.5 Impressions: Abdomen/Pelvis CT 10/18/19 00:00 IMPRESSION: 1. Complicated sigmoid diverticulitis. Moderate-sized peritoneal abscess in the left lower quadrant abdomen with surrounding inflammatory change and mass effect on adjacent bowel. 2. Small bowel ileus related to inflammatory change adjacent to the abscess. No bowel obstruction. 3. Stable too small to characterize right renal cortical lesion likely a renal cortical cyst. Left parapelvic cyst is unchanged. Assessment & Plan - Diagnosis (1) Abscess of sigmoid colon due to diverticulitis Is this a current diagnosis for this admission?: Yes - Time Time Spent with patient: 15-24 minutes - Plan Summary Plan Summary: This is a 59-year-old male with complicated diverticulitis, and an abscess not amenable to percutaneous drainage. The patient is received 3 days of intravenous antibiotics. Plan for repeat CT scan tomorrow to reimage the abscess. If significant improvement has been attained with IV antibiotics alone, a continued course of IV antibiotics may be curative. If the abscess cavity has not significantly lessened, the patient may require operative drainage. This is been discussed with the patient at length. Several approaches were reviewed with the patient, including laparoscopic abscess dra [place]. I will await the CT scan findings before making any further plans. I will continue to follow the patient very closely with you.
[2019-10-20] MEDS: OXYCODONE-ACETAMINOPHEN 5-325 MG TABLET PO PRN (21:50)
[2019-10-20] MEDS: OXYCODONE HCL IR 5 MG TABLET PO PRN (21:51)
[2019-10-21] MEDS: METRONIDAZOLE 500 MG/NS RTU 500 MG/100 ML RTUPB IV SCH ×3 (02:10→18:46)
[2019-10-21] MEDS: NORMAL SALINE 1000 ML 1,000 ML IV PRN (02:14)
[2019-10-21] MEDS: SENNOSIDES/DOCUSATE 8.6-50 MG 1 EACH TABLET PO SCH (10:45)
[2019-10-21] MEDS: CIPROFLOXACIN 400 MG/D5W RTU 400 MG/200 ML RTUPB IV SCH ×2 (10:45→21:21)
[2019-10-21] MEDS: PANTOPRAZOLE SODIUM 40 MG TABLET.DR PO SCH (10:46)
[2019-10-21] MEDS: DULOXETINE HCL 30 MG CAPSULE.DR PO SCH (10:46)
[2019-10-21] MEDS: FLUTICASONE NASAL SPRAY 50 MCG/SPRY 120 SPRAY/16 GM NASL SCH (10:46)
[2019-10-21] MEDS: TAMSULOSIN HCL 0.4 MG CAP.SR.24H PO SCH (10:46)
[2019-10-21] MEDS: ASPIRIN 81 MG TABLET, ENT COATED PO SCH (10:46)
[2019-10-21] MEDS: MELOXICAM 15 MG TABLET PO SCH (10:47)
[2019-10-21] MEDS: MULTIVITAMIN TABLET PO SCH (10:47)
[2019-10-21] MEDS: DUTASTERIDE 0.5 MG CAPSULE PO SCH (10:47)
[2019-10-21] MEDS: ENOXAPARIN SODIUM INJ 40 MG/0.4 ML DISP.SYRIN SUBCUT SCH (11:10)
--- NOTE | 2019-10-21 12:26 | RADIOLOGY REPORT (SQ) ---
EXAM DESCRIPTION: CT ABD/PELVIS WITH IV ORAL COMPLETED DATE/TIME: 10/21/2019 10:32 am REASON FOR STUDY: re-evaluate diverticular abscess COMPARISON: CT abdomen pelvis 10/18/2019, 08/23/2018 TECHNIQUE: CT scan of the abdomen and pelvis performed using helical scanning technique with dynamic intravenous contrast injection. No oral contrast. Images reviewed with lung, soft tissue, and bone windows. Reconstructed coronal and sagittal MPR images reviewed. Delayed images for evaluation of the urinary system also acquired. All images stored on PACS. All CT scanners at this facility use dose modulation, iterative reconstruction, and/or weight based d osing when appropriate to reduce radiation dose to as low as reasonably achievable (ALARA). [facility]: Dose Right [facility]: CareDose [facility]: Dose Right [facility]: Teradose 4D [facility]: [employer] CONTRAST TYPE AND DOSE: contrast/concentration: Isovue 350.00 mg/ml; Total Contrast Delivered: 100.0 ml; Total Saline Delivered: 72.0 ml RENAL FUNCTION: Creatinine 1.1 RADIATION DOSE: CT Rad equipment meets quality standard of care and radiation dose reduction techniq ues were employed. CTDIvol: 8.5 - 11.9 mGy. DLP: 1049 mGy-cm.. LIMITATIONS: None. FINDINGS: Heavy burden of descending and sigmoid colon diverticulitis. Along the proximal sigmoid c olon a short segment of colonic inflammation is present with an adjacent extraluminal air fluid level from abscess measuring 5 x 3 x 3 cm in size. This is best shown on axial image 49/91, coronal image s 29-35, and sagittal images 56-68, and is about at the level of the umbilicus. Abscess is completel y surrounded by opacified loops of colon and small bowel with oral contrast. There is no leakage of oral contrast into the abscess cavity. Remainder of gastrointestinal tract demonstrates diffuse colonic diverticulosis without diverticuliti s. No CT evidence of bowel obstruction or free intraperitoneal air. No cul-de-sac free fluid. LOWER CHEST: No significant findings. No nodules or infiltrates. LIVER: Normal size. No masses. No dilated ducts. SPLEEN: Normal size. No focal lesions. PANCREAS: No masses. No significant calcifications. No adjacent inflammation or peripancreatic fluid collections. Pancreatic duct not dilated. GALLBLADDER: No identified stones by CT criteria. No inflammatory changes to suggest cholecystitis. ADRENAL GLANDS: No significant masses or asymmetry. RIGHT KIDNEY AND URETER: No solid masses. No significant calcifications. No hydronephrosis or hyd roureter. LEFT KIDNEY AND URETER: No solid masses. 4.6 cm left parapelvic cyst. No significant calcification s. No hydronephrosis or hydroureter. AORTA AND VESSELS: No aneurysm. No dissection. Renal arteries, SMA, celiac without stenosis. RETROPERITONEUM: No retroperitoneal adenopathy, hemorrhage or masses. BOWEL AND PERITONEAL CAVITY: As above APPENDIX: Normal. PELVIS: No mass. No free fluid. Normal bladder. ABDOMINAL WALL: No masses. No hernias. BONES: No significant or acute findings. OTHER: No other significant finding. IMPRESSION: Diverticular abscess adjacent to short segment of inflamed proximal sigmoid colon, curre ntly 5 x 3 cm in size (was 7 x 4 cm in size on 10/18/2019). Findings discussed with Dr. Hernandez TECHNICAL DOCUMENTATION: JOB ID: [id number] Quality ID # [id number]: Final reports with documentation of one or more dose reduction techniques (e.g., Au tomated exposure control, adjustment of the mA and/or kV according to patient size, use of iterative reconstruction technique) 2010 [employer]- All Rights Reserved Reading location - IP/workstation name: [email or web address]
--- NOTE | 2019-10-21 12:55 | PDOC PROGRESS REPORT ---
Subjective Progress Note for:: 10/21/19 Subjective:: This is a 59-year-old male admitted with complicated diverticulitis. The patient was found to have a large diverticular abscess, not amenable to percutaneous drainage. The patient reports feeling better today. His abdominal pain is gone. He denies nausea or vomiting. He reports having a bowel movements. The patient is tolerating a regular diet. He denies chest pain, shortness of breath, fevers, chills, nausea, vomiting, headache, dizziness, orthostasis, malaise, or fatigue. Reason For Visit: ABDOMINAL PAIN, N/V,DIVERTICULITIS Physical Exam Vital Signs: Temp Pulse Resp BP Pulse Ox 98.6 F 53 L 16 159/89 H 99 10/21/19 07:38 10/21/19 07:38 10/21/19 07:38 10/21/19 07:38 10/21/19 07:38 Intake & Output 10/20/19 10/21/19 10/22/19 06:59 06:59 06:59 Intake Total 4158 2440 300 Balance 4158 2440 300 Weight 82.1 kg 81 kg Exam: General appearance: PRESENT: no acute distress, cooperative Head exam: PRESENT: atraumatic, normocephalic Eye exam: PRESENT: EOMI, PERRLA. ABSENT: scleral icterus Mouth exam: PRESENT: moist, neck supple Neck exam: ABSENT: meningismus, tenderness, thyromegaly, tracheal deviation Respiratory exam: PRESENT: unlabored. ABSENT: chest wall tenderness, tachypnea, wheezes Cardiovascular exam: ABSENT: tachycardia Vascular exam: PRESENT: normal capillary refill GI/Abdominal exam: PRESENT: soft. ABSENT: rebound, rigid, distention, tenderness Rectal exam: PRESENT: deferred Extremities exam: ABSENT: clubbing Neurological exam: PRESENT: alert, awake, oriented to person, oriented to place, oriented to time, oriented to situation, CN II-XII grossly intact. ABSENT: motor sensory deficit Psychiatric exam: ABSENT: agitated, anxious Focused psych exam: ABSENT: delusional Skin exam: ABSENT: cyanosis, erythema, jaundice Results Laboratory Results: 10/20/19 20:25 10/19/19 05:36 10/20/19 20:25 WBC 8.9 RBC 3.99 L Hgb 13.0 L Hct 37.7 L MCV 95 MCH 32.7 MCHC 34.6 RDW 13.4 Plt Count 296 Seg Neutrophils % 67.5 Impressions: Abdomen/Pelvis CT 10/21/19 10:00 IMPRESSION: Diverticular abscess adjacent to short segment of inflamed proximal sigmoid colon, currently 5 x 3 cm in size (was 7 x 4 cm in size on 10/18/2019). Findings discussed with Dr. Hernandez Assessment & Plan - Diagnosis (1) Abscess of sigmoid colon due to diverticulitis Is this a current diagnosis for this admission?: Yes - Time Time Spent with patient: Less than 15 minutes - Plan Summary Plan Summary: This is a 59-year-old male with complicated diverticulitis and an intra- abdominal abscess, not amenable to percutaneous drainage. The patient has had 3 days of intravenous antibiotics. He is feeling well, his leukocytosis has resolved. He is tolerating a regular diet. His repeat CAT scan today shows lessening of the intra-abdominal abscess. This has been discussed with the patient at length. Patient is very hesitant to undergo any sort of operative intervention at this time. He wishes to continue with IV/oral antibiotics and monitor his intra-abdominal infection. I have discussed this at length with the patient and his family. He is aware of the possibility of failure of antibiotics, with worsening of his condition. At this time he is willing to accept these risks (if it means possibly avoiding surgery). Continue with an tibiotics. 2 weeks of oral antibiotics as an outpatient. Follow-up with me in 7 to [address] scanning. Will follow.
--- NOTE | 2019-10-21 16:12 | PDOC PROGRESS REPORT ---
Subjective Progress Note for:: 10/21/19 Subjective:: Patient had a repeat CT scan today of the abdomen and pelvis, showed less abscess, patient wants to continue nonoperative strategy Reason For Visit: ABDOMINAL PAIN, N/V,DIVERTICULITIS Physical Exam Vital Signs: Temp Pulse Resp BP Pulse Ox 97.3 F 53 L 17 165/81 H 100 10/21/19 12:13 10/21/19 14:00 10/21/19 12:13 10/21/19 12:13 10/21/19 12:13 Intake & Output 10/20/19 10/21/19 10/22/19 06:59 06:59 06:59 Intake Total 4158 2440 400 Balance 4158 2440 400 Weight 82.1 kg 81 kg General appearance: PRESENT: no acute distress, well-developed, well-nourished Head exam: PRESENT: atraumatic, normocephalic Eye exam: PRESENT: conjunctiva pink, EOMI, PERRLA Ear exam: PRESENT: normal external ear exam Mouth exam: PRESENT: moist, tongue midline Neck exam: PRESENT: full ROM Respiratory exam: PRESENT: clear to auscultation tesfaye Cardiovascular exam: PRESENT: RRR, +S1, +S2 Pulses: PRESENT: normal dorsalis pedis pul, +2 pedal pulses bilateral Vascular exam: PRESENT: normal capillary refill GI/Abdominal exam: PRESENT: normal bowel sounds, soft Rectal exam: PRESENT: deferred Neurological exam: PRESENT: alert, awake, oriented to person, oriented to place, oriented to time, oriented to situation, CN II-XII grossly intact. ABSENT: motor sensory deficit Psychiatric exam: PRESENT: appropriate affect, normal mood. ABSENT: homicidal ideation, suicidal ideation Skin exam: PRESENT: dry, intact, warm. ABSENT: cyanosis, rash Results Laboratory Results: 10/20/19 20:25 10/19/19 05:36 10/20/19 20:25 WBC 8.9 RBC 3.99 L Hgb 13.0 L Hct 37.7 L MCV 95 MCH 32.7 MCHC 34.6 RDW 13.4 Plt Count 296 Seg Neutrophils % 67.5 Impressions: Abdomen/Pelvis CT 10/21/19 10:00 IMPRESSION: Diverticular abscess adjacent to short segment of inflamed proximal sigmoid colon, currently 5 x 3 cm in size (was 7 x 4 cm in size on 10/18/2019). Findings discussed with Dr. Hernandez Assessment & Plan - Diagnosis (1) Abscess of sigmoid colon due to diverticulitis Is this a current diagnosis for this admission?: Yes Plan: continue treatment - Time Time Spent with patient: 35 or more minutes
[2019-10-21] MEDS: OXYCODONE-ACETAMINOPHEN 5-325 MG TABLET PO PRN (21:30)
[2019-10-21] MEDS: OXYCODONE HCL IR 5 MG TABLET PO PRN (21:31)
[2019-10-22] MEDS: METRONIDAZOLE 500 MG/NS RTU 500 MG/100 ML RTUPB IV SCH (01:45)
[2019-10-22 07:34] VITALS: BP 156/84
--- NOTE | 2019-10-23 18:30 | PDOC DISCHARGE SUMMARY ---
Impression - Admit/DC Date/PCP Admission Date/Primary Care Provider: 10/18/19 14:46 LILA SMITH NP Discharge Date: 10/22/19 - Discharge Diagnosis (1) Diverticulitis of colon Is this a current diagnosis for this admission?: Yes (2) HTN (hypertension) Is this a current diagnosis for this admission?: Yes (3) BPH w urinary obs/LUTS Is this a current diagnosis for this admission?: Yes (4) GERD (gastroesophageal reflux disease) Is this a current diagnosis for this admission?: Yes (5) Osteoarthritis involving multiple joints on both sides of body Is this a current diagnosis for this admission?: Yes (6) Chronic pain syndrome Is this a current diagnosis for this admission?: Yes (7) Erectile dysfunction Is this a current diagnosis for this admission?: Yes - Assessment Summary: Patient was admitted for LLQ abdominal pain with nausea and vomiting elevated WBC with left shift and concern for diverticulitis. His CT scan of abdomen and pelvis revealed diverticulitis and peritoneal abscess collection. He was seen in consultation by the surgicalist team with recommendation to continue conservative medical management due to location of abscess collection and small bowel proximity making it difficult for percuteneous drainage approach. Surgical intervention will be schedule when patient is more stable from outpatient consultation follow up. His associated symptoms and leukocytosis did resolved on IV Ciprofloxacin and Flagyl. His blood culture was no growth after adequate incubation period. He was transition to oral Ciprofloxacin and Flagyl for ten days and discharge home.He will follow up with the surgical teal and myself as instructed upon discharge. - Additional Information Discharge Diet: Regular Discharge Activity: Activity As Tolerated Referrals: [facility] [Provider Group] - 10/29/19 2:00 pm (DR. FATIMA. PLEASE ARRIVE AT LEAST 15 MINUTES EARLY TO COMPLETE PAPERWORK.) ALPHONSO INFANTE MD [ACTIVE STAFF] - 11/01/19 10:00 am Prescriptions: Ciprofloxacin HCl [Cipro 500 mg Tablet] 500 mg PO BID #20 tablet Metronidazole [Flagyl 500 mg Tablet] 500 mg PO TID #30 tablet Home Medications: Aspirin [Ecotrin 81 mg EC Tablet] 81 mg PO DAILY 10/18/19 Duloxetine HCl [Cymbalta 30 mg Capsule.] 30 mg PO DAILY 10/18/19 Dutasteride/Tamsulosin HCl [Dutasteride-Tamsulosin 0.5-0.4] 1 cap PO DAILY 10/18/19 Fluticasone Propionate [Flonase Nasal Mclean 50 Mcg/Mclean 16 gm] 2 spray NASL DAILY 10/18/19 Meloxicam [Mobic] 15 mg PO DAILY 10/18/19 Multivitamin [Daily Multiple Vitamin] 1 tab PO DAILY 10/18/19 Oxycodone HCl/Acetaminophen [Percocet 10-325 mg Tablet] 1 tab PO Q6HP PRN 10/18/19 Sennosides/Docusate Sodium [Senna Plus 8.6-50 mg Tablet] 1 tab PO DAILY 10/18/19 Sildenafil Citrate [Viagra] 100 mg PO PRN PRN 10/18/19 Ciprofloxacin HCl [Cipro 500 mg Tablet] 500 mg PO BID #20 tablet 10/22/19 Metronidazole [Flagyl 500 mg Tablet] 500 mg PO TID #30 tablet 10/22/19 History of Present Illiness History of Present Illness: JAYLIN ARANA is a 59 year old male patient known to my practice who presented to the office earlier today with complain of abdominal pain since 10/10/2019 and development of nausea with vomiting today. Patient localized pain mostly to LLQ region and described as colicky, worsening in intensity and graded 8/10. He reported chills and breaking out with sweats intermittently. He denied diarrhea or constipation. No dysuria or flank pain. His appetite and p.o intake declined due to associated listed symptoms. He denied any chest pain or difficulty with breathing. His morbidities are as listed below. Hospital Course Hospital Course: Patient was admitted for LLQ abdominal pain with nausea and vomiting elevated WBC with left shift and concern for diverticulitis. His CT scan of abdomen and pelvis revealed diverticulitis and peritoneal abscess collection. He was seen in consultation by the surgicalist team with recommendation to continue conservative medical management due to location of abscess collection and small bowel proximity making it difficult for percuteneous drainage approach. Surgical intervention will be schedule when patient is more stable from outpatient consultation follow up. His associated symptoms and leukocytosis did resolved on IV Ciprofloxacin and Flagyl. His blood culture was no growth after adequate incubation period. He was transition to oral Ciprofloxacin and Flagyl for ten days and discharge home.He will follow up with the surgical teal and myself as instructed upon discharge. Physical Exam Vital Signs: Temp Pulse Resp BP Pulse Ox 97.7 F 54 L 17 156/84 H 100 10/22/19 07:31 10/22/19 07:31 10/22/19 07:31 10/22/19 07:31 10/22/19 07:31 Intake & Output 10/21/19 10/22/19 10/23/19 06:59 06:59 06:59 Intake Total 2440 3303 Balance 2440 3303 Weight 81 kg 82.9 kg General appearance: PRESENT: no acute distress. Head exam: PRESENT: atraumatic, normocephalic Eye exam: PRESENT: conjunctiva pink. ABSENT: pallor, scleral icterus Ear exam: PRESENT: TM's normal bilaterally Mouth exam: PRESENT: moist Respiratory exam: PRESENT: clear to auscultation [id number] Cardiovascular exam: PRESENT: RRR, +S1, +S2. ABSENT: diastolic murmur, rubs, systolic murmur GI/Abdominal exam: PRESENT: normal bowel sounds, soft. ABSENT: distended, tenderness, guarding, mass, organomegaly, rebound Extremities exam: ABSENT: pedal edema Neurological exam: PRESENT: alert, awake, oriented to person, oriented to place, oriented to time, oriented to situation, CN II-XII grossly intact. ABSENT: motor sensory deficit Psychiatric exam: PRESENT: appropriate affect, normal mood. ABSENT: homicidal ideation, suicidal ideation Skin exam: PRESENT: dry, warm Results Laboratory Results: WBC 8.9 10^3/uL (4.0-10.5) 10/20/19 20:25 RBC 3.99 10^6/uL (4.35-5.55) L 10/20/19 20:25 Hgb 13.0 g/dL (13.5-17.0) L 10/20/19 20:25 Hct 37.7 % (37.9-51.0) L 10/20/19 20:25 MCV 95 fl (80-97) 10/20/19 20:25 MCH 32.7 pg (27.0-33.4) 10/20/19 20:25 MCHC 34.6 g/dL (32.0-36.0) 10/20/19 20:25 RDW 13.4 % (11.5-14.0) 10/20/19 20:25 Plt Count 296 10^3/uL (150-450) 10/20/19 20:25 Lymph % (Auto) 15.8 % (13-45) 10/20/19 20:25 [place] % (Auto) 12.0 % (3-13) 10/20/19 20:25 Eos % (Auto) 4.3 % (0-6) 10/20/19 20:25 Baso % (Auto) 0.4 % (0-2) 10/20/19 20:25 Absolute Neuts (auto) 6.0 10^3/uL (1.7-8.2) 10/20/19 20:25 Absolute Lymphs (auto) 1.4 10^3/uL (0.5-4.7) 10/20/19 20:25 Absolute Monos (auto) 1.1 10^3/uL (0.1-1.4) 10/20/19 20:25 Absolute Eos (auto) 0.4 10^3/uL (0.0-0.6) 10/20/19 20:25 Absolute Basos (auto) 0.0 10^3/uL (0.0-0.2) 10/20/19 20:25 Seg Neutrophils % 67.5 % (42-78) 10/20/19 20:25 Sodium 137.6 mmol/L (137-145) 10/19/19 05:36 Potassium 4.6 mmol/L (3.6-5.0) 10/19/19 05:36 Chloride 97 mmol/L (98-107) L 10/19/19 05:36 Carbon Dioxide 30 mmol/L (22-30) 10/19/19 05:36 Anion Gap 11 (5-19) 10/19/19 05:36 BUN 11 mg/dL (7-20) 10/19/19 05:36 Creatinine 1.11 mg/dL (0.52-1.25) 10/19/19 05:36 Est GFR ( Amer) > 60 (>60) 10/19/19 05:36 Est GFR (MDRD) Non-Af > 60 (>60) 10/19/19 05:36 Glucose 113 mg/dL (75-110) H 10/19/19 05:36 Hemoglobin A1c % 5.8 % (4.7-6.0) 10/19/19 05:36 Calcium 9.2 mg/dL (8.4-10.2) 10/19/19 05:36 Total Bilirubin 0.6 mg/dL (0.2-1.3) 10/18/19 15:38 Direct Bilirubin 0.1 mg/dL (0.0-0.4) 10/18/19 15:38 Neonat Total Bilirubin Not Reportable 10/18/19 15:38 Neonat Direct Bilirubin Not Reportable 10/18/19 15:38 Neonat Indirect Bili Not Reportable 10/18/19 15:38 AST 18 U/L (17-59) 10/18/19 15:38 ALT 24 U/L (<50) 10/18/19 15:38 Alkaline Phosphatase 82 U/L (38-126) 10/18/19 15:38 Total Protein 7.6 g/dL (6.3-8.2) 10/18/19 15:38 Albumin 4.1 g/dL (3.5-5.0) 10/18/19 15:38 Impressions: Abdomen/Pelvis CT 10/18/19 00:00 IMPRESSION: 1. Complicated sigmoid diverticulitis. Moderate-sized peritoneal abscess in the left lower quadrant abdomen with surrounding inflammatory change and mass effect on adjacent bowel. 2. Small bowel ileus related to inflammatory change adjacent to the abscess. No bowel obstruction. 3. Stable too small to characterize right renal cortical lesion likely a renal cortical cyst. Left parapelvic cyst is unchanged. Abdomen/Pelvis CT 10/21/19 10:00 IMPRESSION: Diverticular abscess adjacent to short segment of inflamed proximal sigmoid colon, currently 5 x 3 cm in size (was 7 x 4 cm in size on 10/18/2019). Findings discussed with Dr. Hernandez Plan Health Concerns: Completion of antibiotic coverage and surgical follow up as instructed. Plan of Treatment: Follow up with surgical team to schedule elective surgical intervention for drainage of his peritoneal abscess. Goals: Complete resolution of his perforated sigmoid diverticulitis with peritoneal abscess collection. Stroke Is this a Stroke Patient?: No Acute Heart Failure - Is this a Heart Failure Patient?: No
== END 2019-10-22 09:22 | disposition home or self-care (01) | DRG 392 ==
LOC: 5 14:46
PROVIDERS: ADMIT Internal Medicine Geriatric Medicine; ATTEND Internal Medicine Geriatric Medicine
DX: K57.20 Diverticulitis of large intestine with perforation and abscess without bleeding (principal); I10 Essential (primary) hypertension; N40.1 Benign prostatic hyperplasia with lower urinary tract symptoms; K21.9 Gastro-esophageal reflux disease without esophagitis; M19.90 Unspecified osteoarthritis, unspecified site; G89.4 Chronic pain syndrome; N52.9 Male erectile dysfunction, unspecified; Z96.642 Presence of left artificial hip joint; Z79.82 Long term (current) use of aspirin; Z87.891 Personal history of nicotine dependence; Z79.899 Other long term (current) drug therapy
CPT/HCPCS: 36415; 74177; 80048; 80053; 83036; 85025; 87040; 90686; J0744; J1650; J3490; J7030

== ENCOUNTER 2020-02-06 06:30 | Day surgery (SDC) | payer OTHER ==
[2020-02-01 10:48] LABS: HEMATOCRIT 43.7 % (37.9-51.0); HEMOGLOBIN 15.4 g/dL (13.5-17.0); MEAN CORPUSCULAR HEMOGLOBIN 33.4 pg (27.0-33.4); MEAN CORPUSCULAR HGB CONC 35.2 g/dL (32.0-36.0); MEAN CORPUSCULAR VOLUME 95 fl (80-97); PLATELET COUNT 199 10^3/uL (150-450); RED BLOOD COUNT 4.61 10^6/uL (4.35-5.55); RED CELL DISTRIBUTION WIDTH 14.2 % (11.5-14.0); WHITE BLOOD COUNT 12.7 10^3/uL (4.0-10.5)
[2020-02-01 11:15] LABS: ANION GAP 6 (5-19); BLOOD UREA NITROGEN 13 mg/dL (7-20); CALCIUM 9.8 mg/dL (8.4-10.2); CARBON DIOXIDE 31 mmol/L (22-30); CHLORIDE 101 mmol/L (98-107); GLUCOSE 95 mg/dL (75-110); POTASSIUM 5.3 mmol/L (3.6-5.0)
--- NOTE | 2020-02-01 12:56 | EKG REPORT ---
SEVERITY:- ABNORMAL ECG - SINUS RHYTHM BORDERLINE LEFT AXIS DEVIATION ABNRM R PROG, CONSIDER ASMI OR LEAD PLACEMENT : Confirmed by: Oren Miller MD 01-Feb-2020 12:56:03
[~2020-02-06 06:30] MED LIST: LACTATED RINGERS 1000 ML IV PRN; LIDOCAINE 0.5% INJ-PF (5 MG/ML) 50 ML SDV SUBCUT PRN
[2020-02-06] MEDS ORDERED: PROPOFOL INJ 200 MG/20 ML VIAL IV ONE (07:14)
--- NOTE | 2020-02-06 08:33 | Discharge Summary ---
Discharge Summary (SDC) - Discharge Final Diagnosis: Extensive diverticulosis of the sigmoid colon Date of Surgery: 02/06/20 Discharge Date: 02/06/20 Condition: Good Treatment or Instructions: [facility] [place] [id number] POST ENDOSCOPY DISCHARGE INSTRUCTIONS 1. Diet: Start clear liquids that a regular diet as tolerated. 2. Resume all preoperative medications. All oral anticoagulants and aspirins can be resumed 24 hours after procedure. 3. If a polypectomy was performed some bleeding per rectum may occur. This should stop within 3 days. If not, please contact the office. 4. If you had a colonoscopy you may experience some bloating and delayed return of normal bowel function for several days, your regular bowel movement pattern should resume within a week. 5. Please contact [facility] at to make an appoi ntment with Dr. Muñoz for 1 to 3 weeks following procedure. 6. If you have any questions or concerns regarding your care,treatment plan or follow up, please contact our office. 7. Per clinical guidelines we recommend you undergo a repeat colonoscopy in 5-7 years. Referrals: ALPHONSO INFANTE MD [Primary Care Provider] - Discharge Diet: As Tolerated Discharge Activity: Activity As Tolerated Home Care Assistance: None Needed Report the Following to Your Physician Immediately: Shortness of Breath, Increase in Pain, Fever over 101 Degrees
--- NOTE | 2020-02-06 08:38 | Operative Report ---
Operative Report DATE OF SURGERY: 02/06/20 PREOPERATIVE DIAGNOSIS: 1. History of acute diverticulitis. 2. Personal hist ory of colon polyps POSTOPERATIVE DIAGNOSIS: 1. Extensive diverticulosis of the sigmoid colon. 2. Scattered diverticulosis of the right colon. 3. No evidence of polyps OPERATION: 1. Total colonoscopy to cecum with photodocumentation SURGEON: SHALONDA FATIMA ANESTHESIA: LMAC TISSUE REMOVED OR ALTERED: None COMPLICATIONS: None ESTIMATED BLOOD LOSS: None INTRAOPERATIVE FINDINGS: See below PROCEDURE: Obtaining informed consent the patient was taken from the preoperative holding area to the main endoscopy suite where monitoring devices were attached to the patient. Plan and surgical timeout were conducted The patient was placed in the left lateral decubitus position with knees to chest. A perianal examination was performed. There was no visible or palpable anorectal pathology. Sphincter tone was felt to be normal. The flexible adult colonoscope was advanced through the anal rectal canal, all the way to the cecum. Visualization of the cecum was achieved by demonstration of the ileocecal valve, the appendiceal orifice and transillumination of the anterior abdominal wall. This was an excellent study on the well-prepped bowel. There was a minimal amount of residual stool in the right colon which was easily irrigated and aspirated. The colonoscope was withdrawn slowly and methodically checked and the mucosa carefully. There was no evidence of tumor, stricture, bleeding or polyp. There were extensive diverticulosis of the sigmoid colon. There was some tortuosity getting the scope through the sigmoid colon, but no evidence of stricture, inflammation or ischemia. In the right colon there were scattered diverticulosis. The scope was slowly withdrawn through the anal rectal canal. Complete visualization of the rectum was achieved with photodocumentation. The scope was withdrawn to the patient's anus. The patient tolerated the procedure well and was taken to the recovery area in stable condition. Per surveillance guidelines, patient will be an appropriate candidate for follow-up colonoscopy in 5 to 7 years.
[2020-02-06 09:50] VITALS: BP 156/95
== END 2020-02-06 09:40 | disposition home or self-care (01) ==
LOC: OROUT 06:30
PROVIDERS: ATTEND Surgery
DX: Z12.11 Encounter for screening for malignant neoplasm of colon (principal); K57.30 Diverticulosis of large intestine without perforation or abscess without bleeding; Z86.010 Personal history of colon polyps; Z79.82 Long term (current) use of aspirin
CPT/HCPCS: 45378; 93005; 36415; 85027; 80048; 93010; 00811; J2704; 811